=== PATIENT | male | born 1980 | race Two or more races ===

== ENCOUNTER 2017-09-12 08:07 | Day surgery (SDC) | payer SELFPAY ==
[~2017-09-12 08:07] MED LIST: LIDOCAINE 1% PF 2 ML VIAL. ID; MORPHINE SULFATE 2 MG/ML DISP.SYRIN. IV; PROCHLORPERAZINE 10 MG/2 ML VIAL. IV; fentaNYL PF VIAL 100 MCG/2 ML VIAL IV
[2017-09-12] MEDS ORDERED: LIDOCAINE 1% PF 5 ML VIAL. (08:41)
[2017-09-12] MEDS ORDERED: ROCURONIUM 50 MG/5 ML VIAL. (08:41)
[2017-09-12] MEDS ORDERED: PROPOFOL 20 ML IV (08:41)
[2017-09-12] MEDS ORDERED: MIDAZOLAM HCL/PF 2 MG/2 ML VIAL. (08:42)
[2017-09-12] MEDS ORDERED: LIDOCAINE 2% PF Vial for OR 5 ML VIAL. (08:42)
[2017-09-12] MEDS ORDERED: fentaNYL PF VIAL 250 MCG/5 ML VIAL (08:42)
[2017-09-12] MEDS: IV RINGERS,LACTATED 1000ML 1,000 ML IV (08:47)
[2017-09-12] MEDS: BUPIVACAINE-EPI 0.25%-1:200000 50 ML VIAL. (09:57)
[2017-09-12] MEDS ORDERED: DEXAMETHASONE SOD PHOS 20 MG/5 ML VIAL. (10:01)
[2017-09-12] MEDS ORDERED: ONDANSETRON PF 4 MG/2 ML VIAL. (10:01)
[2017-09-12] MEDS ORDERED: SEVOFLURANE 61 TO 120 MINUTES. IH (10:08)
[2017-09-12] MEDS ORDERED: GLYCOPYRROLATE 1 MG/5 ML VIAL. (10:09)
[2017-09-12] MEDS ORDERED: NEOSTIGMINE 10 MG/10 ML VIAL. (10:09)
[2017-09-12] MEDS ORDERED: ceFAZolin 2GM PREMIX 2 GM/50 ML BAG IV (11:00)
[2017-09-12] MEDS: fentaNYL PF VIAL 100 MCG/2 ML VIAL IV ×2 (11:03→11:52)
[2017-09-12] MEDS: oxyCODONE/APAP 7.5/325 1 TAB TABLET PO (11:51)
[2017-09-12] MEDS: ONDANSETRON PF 4 MG/2 ML VIAL. IV (13:22)
== END 2017-09-12 13:46 | disposition home or self-care (01) ==
LOC: SURG 08:07
DX: K42.0 Umbilical hernia with obstruction, without gangrene (principal); Z72.89 Other problems related to lifestyle; Z98.890 Other specified postprocedural states; Z82.49 Family history of ischemic heart disease and other diseases of the circulatory system
CPT/HCPCS: 49587; 88302; J0690; J1100; J2001; J2250; J2405; J2704; J2710; J3010; J3490; J7120